=== PATIENT | female | born 1995 | race Caucasian/White ===

== ENCOUNTER → 2018-05-05 | Outpatient (CLI) | payer OTHER ==
--- NOTE | 2018-05-05 16:50 | Diagnostic Imaging Report ---
INDICATION: survey. TECHNIQUE: Multiple real-time grayscale images were obtained over the gravid uterus. COMPARISON: None. FINDINGS: There is a single live fetus in a cephalic presentation. heart rate was recorded at 147 beats per minute. Placenta is anterior and somewhat low lying. Amniotic fluid volume is normal. The cervical length is 5.6 cm. kidneys, bladder and stomach are unremarkable. brain is unremarkable. There is a four-chamber heart. There is a three-vessel cord with normal insertion. The visualized spine is unremarkable. Biometrical measurements are as follows: Biparietal 4.86 cm, age 20 weeks 5 days. Head circumference 18.53 cm, age 21 weeks 0 days. Abdominal circumference 16.21 cm, age 21 weeks 3 days. Femur length 3.45 cm, age 21 weeks 0 days. Sonographic estimate age: 21 weeks 1 days. Sonographic estimated date of delivery: 09-14-18. Estimated Weight: 396 gm (+/- 58 gm). LMP percentile: 94%. heart rate: 147 beats per minute. number: 1 of 1. IMPRESSION: Single live IUP 21 weeks 1 day gestational age. The estimated date of confinement sonographically is 09/14/2018. Dictated by: Dictated on workstation # [id number]
== END ==
LOC: RAD 15:55
PROVIDERS: ATTEND Obstetrics & Gynecology
DX: Z36.89 Encounter for other specified antenatal screening (principal); Z3A.21 21 weeks gestation of pregnancy
CPT/HCPCS: 76805

== ENCOUNTER 2018-09-02 19:45 | Inpatient (IN) | payer OTHER | END 2018-09-04 16:10 | disposition home or self-care (01) | LOC: LDRP 19:45 ==

== ENCOUNTER 2018-09-10 15:28 | Observation (INO) | payer OTHER ==
[~2018-09-10] VITALS: Ht 162.6 cm; Wt 73.9 kg
--- NOTE | 2018-09-10 15:25 | NUR ---
YANA GALINDO presented to unit via ambulation from OB clinic, accompanied by friend, with c/o ENDOMETRITIS. YANA GALINDO weighed, gowned, voided, and to bed. EFHM and TOCO applied, VS taken. YANA GALINDO oriented to bed controls, call light, TV, heat, and A/C controls.
[~2018-09-10 15:28] MED LIST: Benzocaine/Menthol TP; DOCU100C37 PO; FERR325T18 PO; HYDR-4226 PO; IBUP-844 PO
--- NOTE | 2018-09-10 15:37 | NUR ---
Dr. Mcguire notified pt has been admitted, awaiting orders
--- NOTE | 2018-09-10 15:59 | NUR ---
Dr. Mcguire called to unit, orders rec'd.
[2018-09-10] MEDS ORDERED: D5 LR IV SOLUTION 1,000 ML IV ONE (16:29)
[2018-09-10 16:30] VITALS: BP 105/71
[2018-09-10] MEDS: D5 LR IV SOLUTION 1,000 ML IV SCH (16:45)
[2018-09-10 16:54] LABS: BASOPHILS % (AUTO) 0 % (0-10); EOSINOPHILS # (AUTO) 0.1 10^3/uL (0.0-0.3); EOSINOPHILS % (AUTO) 1 % (0-10); HEMATOCRIT 30 % (35-52); HEMOGLOBIN 10.3 G/DL (11.5-16.0); LYMPHOCYTES # (AUTO) 1.5 X 10^3 (1.0-4.0); LYMPHOCYTES % (AUTO) 17 % (12-44); MEAN CORPUSCULAR HEMOGLOBIN 31 PG (25-34); MEAN CORPUSCULAR HGB CONC 35 G/DL (32-36); MEAN CORPUSCULAR VOLUME 91 FL (80-99); MEAN PLATELET VOLUME 9.3 FL (7.4-10.4); MONOCYTES # (AUTO) 0.6 X 10^3 (0.0-1.0); MONOCYTES % (AUTO) 7 % (0-12); NEUTROPHILS # (AUTO) 6.5 X 10^3 (1.8-7.8); NEUTROPHILS % (AUTO) 75 % (42-75); PLATELET COUNT 357 10^3/uL (130-400); WHITE BLOOD COUNT 8.7 10^3/uL (4.3-11.0)
--- OUTSIDE RECORDS SUMMARY | 2018-09-10 16:59 | XMS REPORT | Continuity of Care Document ---
Author Organization Unknown Address Unknown Allergies Active Description Code Type Severity Reaction Onset Reported/Identified Relationship to Patient Clinical Status Yes Sulfa (Sulfonamide Antibiotics) [id number] Drug Allergy Moderate rash 09/02/2018 Medications There is no data. Problems Date Dx Coded Attending Type Code Diagnosis Diagnosed By 05/06/2018 FENECH DO, RYAN S Ot Z36.89 ENCOUNTER FOR OTHER SPECIFIED 05/06/2018 FENECH DO, RYAN S Ot Z3A.21 21 WEEKS GESTATION OF 05/11/2018 FENECH DO, RYAN S Ot Z36.89 ENCOUNTER FOR OTHER SPECIFIED 05/11/2018 FENECH DO, RYAN S Ot Z3A.21 21 WEEKS GESTATION OF 05/20/2018 FENECH DO, RYAN S Ot Z36.89 ENCOUNTER FOR OTHER SPECIFIED 05/20/2018 FENECH DO, RYAN S Ot Z3A.21 21 WEEKS GESTATION OF 07/22/2018 FENECH DO, RYAN S Ot Z36.89 ENCOUNTER FOR OTHER SPECIFIED 07/22/2018 FENECH DO, RYAN S Ot Z3A.21 21 WEEKS GESTATION OF 09/02/2018 FENECH DO, RYAN S Ot Z36.89 ENCOUNTER FOR OTHER SPECIFIED 09/02/2018 FENECH DO, RYAN S Ot Z3A.21 21 WEEKS GESTATION OF Procedures There is no data. Results Test Result Range Complete urinalysis with reflex to culture - 09/02/18 20:30 Urine color determination YELLOW NRG Urine clarity determination CLEAR NRG Urine pH measurement by test strip 7 5-9 Specific gravity of urine by test strip 1.005 1.016-1.022 Urine protein assay by test strip, semi-quantitative NEGATIVE NEGATIVE Urine glucose detection by automated test strip NEGATIVE NEGATIVE Erythrocytes detection in urine sediment by light microscopy NEGATIVE NEGATIVE Urine ketones detection by automated test strip NEGATIVE NEGATIVE Urine nitrite detection by test strip NEGATIVE NEGATIVE Urine total bilirubin detection by test strip NEGATIVE NEGATIVE Urine urobilinogen measurement by automated test strip (mass/volume) NORMAL NORMAL Urine leukocyte esterase detection by dipstick 1+ NEGATIVE Automated urine sediment erythrocyte count by microscopy (number/high power field) NONE NRG Automated urine sediment leukocyte count by microscopy (number/high power field) [HPF] NRG Bacteria detection in urine sediment by light microscopy FEW NRG Crystals detection in urine sediment by light microscopy NONE NRG Casts detection in urine sediment by light microscopy NONE NRG Mucus detection in urine sediment by light microscopy NEGATIVE NRG Complete urinalysis with reflex to culture NO NRG Complete blood count (CBC) with automated white blood cell (WBC) differential - 09/02/18 21:00 Blood leukocytes automated count (number/volume) 7.2 10*3/uL 4.3-11.0 Blood erythrocytes automated count (number/volume) 3.82 10*6/uL 4.35-5.85 Venous blood hemoglobin measurement (mass/volume) 12.0 g/dL 11.5-16.0 Blood hematocrit (volume fraction) 34 % 35-52 Automated erythrocyte mean corpuscular volume 90 [foz_us] 80-99 Automated erythrocyte mean corpuscular hemoglobin (mass per erythrocyte) 31 pg 25-34 Automated erythrocyte mean corpuscular hemoglobin concentration measurement (mass/volume) 35 g/dL 32-36 Automated erythrocyte distribution width ratio 13.3 % 10.0- 14.5 Automated blood platelet count (count/volume) 211 10*3/uL 130-400 Automated blood platelet mean volume measurement 10.6 [foz_us] 7.4-10.4 Automated blood neutrophils/100 leukocytes 69 % 42-75 Automated blood lymphocytes/100 leukocytes 19 % 12-44 Blood monocytes/100 leukocytes 11 % 0-12 Automated blood eosinophils/100 leukocytes 1 % 0-10 Automated blood basophils/100 leukocytes 0 % 0-10 Blood neutrophils automated count (number/volume) 5.0 10*3 1.8-7.8 Blood lymphocytes automated count (number/volume) 1.4 10*3 1.0-4.0 Blood monocytes automated count (number/volume) 0.8 10*3 0.0- 1.0 Automated eosinophil count 0.1 10*3/uL 0.0-0.3 Automated blood basophil count (count/volume) 0.0 10*3/uL 0.0-0.1 Blood type T Indirect antibody screen panel - 09/02/18 21:00 ABO+Rh group OP NRG Transfusion band number [id number] NRG Blood group antibody screen NEGATIVE NRG Complete blood count (CBC) with automated white blood cell (WBC) differential - 09/04/18 05:50 Blood leukocytes automated count (number/volume) 7.4 10*3/uL 4.3-11.0 Blood erythrocytes automated count (number/volume) 2.80 10*6/uL 4.35-5.85 Venous blood hemoglobin measurement (mass/volume) 8.8 g/dL 11.5-16.0 Blood hematocrit (volume fraction) 25 % 35-52 Automated erythrocyte mean corpuscular volume 91 [foz_us] 80-99 Automated erythrocyte mean corpuscular hemoglobin (mass per erythrocyte) 31 pg 25-34 Automated erythrocyte mean corpuscular hemoglobin concentration measurement (mass/volume) 35 g/dL 32-36 Automated erythrocyte distribution width ratio 13.0 % 10.0- 14.5 Automated blood platelet count (count/volume) 180 10*3/uL 130-400 Automated blood platelet mean volume measurement 10.3 [foz_us] 7.4-10.4 Automated blood neutrophils/100 leukocytes 66 % 42-75 Automated blood lymphocytes/100 leukocytes 25 % 12-44 Blood monocytes/100 leukocytes 9 % 0-12 Automated blood eosinophils/100 leukocytes 1 % 0-10 Automated blood basophils/100 leukocytes 0 % 0-10 Blood neutrophils automated count (number/volume) 4.9 10*3 1.8-7.8 Blood lymphocytes automated count (number/volume) 1.8 10*3 1.0-4.0 Blood monocytes automated count (number/volume) 0.6 10*3 0.0- 1.0 Automated eosinophil count 0.1 10*3/uL 0.0-0.3 Automated blood basophil count (count/volume) 0.0 10*3/uL 0.0-0.1 Encounters ACCT No. Visit Date/Time Discharge Status Pt. Type Provider Facility Loc./Unit Complaint [id number] 09/02/2018 19:45:00 09/04/2018 16:10:00 DIS Inpatient RYAN WEBSTER DO [facility] LDRP INDUCTION [id number] 05/05/2018 15:55:00 05/05/2018 23:59:59 CLS Outpatient RYAN WEBSTER DO [facility] RAD
[2018-09-10] MEDS ORDERED: metroNIDAZOLE 500MG/100ML IVPB 100 ML ONE (17:06)
--- NOTE | 2018-09-10 17:21 | Diagnostic Imaging Report ---
INDICATION: with abdominal tenderness. TECHNIQUE: Multiple real-time grayscale sonographic images were obtained of the pelvis, transabdominally and transvaginally. CORRELATION STUDY: None. FINDINGS: UTERUS: Enlarged consistent with state, 12.4 x 10.3 x 6.1 cm. The uterus otherwise appears unremarkable. ENDOMETRIUM: 4 mm. Endometrial thickness within normal limits; however, there is somewhat heterogeneous echotexture present. A few echogenic foci are noted. Additionally, there does appear to be some increased vascularity raising concern for retained products of conception. RIGHT OVARY: Not visualized. LEFT OVARY: Not visualized. No significant free pelvic fluid. IMPRESSION: 1. The endometrial thickness is within normal limits in thickness; however, there is heterogeneous echotexture with a suggestion of increased vascularity which does raise concern for retained products of conception. Echogenic foci could be reflective of calcifications versus small gas. 2. Nonvisualization of either ovary. Report was given to Dr. Mcguire at 5:20 p.m., by gila (for YOVANY). Dictated by: Dictated on workstation # [id number]
[2018-09-10] MEDS: metroNIDAZOLE 500MG/100ML IVPB 100 ML IV SCH (17:24)
[2018-09-10] MEDS: IBUPROFEN 600 MG (MOTRIN) TAB PO SCH (17:28)
[2018-09-10] MEDS ORDERED: ACETAMINOPHEN 500 MG TAB (TYLENOL) PO PRN (17:45)
[2018-09-10] MEDS: AMPICILLIN/SULBACTAM INJECTION 1.5 GM in NS (IVPB) 100 ML IV SCH (18:30)
--- NOTE | 2018-09-10 18:31 | NUR ---
To room to answer call light. Pt reports pain 8/10, worse than it has been all day. Pt shaking and visibly uncomfortable. Offered Lortab, pt requests something IV instead. Dr. Mcguire called, order rec'd for 1mg Dilaudid q3 hrs
[2018-09-10] MEDS ORDERED: HYDROmorphone 2 MG/ML VIAL (DILAUDID) ONE (19:02)
[2018-09-10] MEDS: HYDROmorphone 2 MG/ML VIAL (DILAUDID) IVP PRN (19:10)
--- NOTE | 2018-09-10 19:25 | NUR ---
call light answered at this time, patient asking about . Patient voices that she is feeling, "alot" better after receiving IV pain medication. No needs or concerns voiced when asked. POC reviewed with patient. Will return for assessment.
[2018-09-10 20:40] VITALS: BP 105/66
[2018-09-10] MEDS: DOCUSATE SODIUM 100 MG (COLACE) CAP PO SCH (20:40)
--- NOTE | 2018-09-10 20:40 | NUR ---
Assessment and vitals signs completed at this time. Patient voices pain is a 0/10 at this time. Mother at bedside. Patient voices no needs at this time. POC once again reviewed. Call light within reach, encouraged patient to call for any assistance or needs, patient verbalizes understanding.
[2018-09-10] MEDS ORDERED: metroNIDAZOLE 500MG/100ML IVPB 100 ML IV SCH (21:00)
[2018-09-10] MEDS: HYDROcodone/APAP 5 MG/325 MG (LORTAB) TAB PO PRN (21:29)
[2018-09-10] MEDS ORDERED: AMPICILLIN/SULBACTAM INJECTION 1.5 GM in NS (IVPB) 100 ML IV SCH (22:00)
--- NOTE | 2018-09-10 22:20 | History & Physical-OB/GYN ---
History of Present Illness History of Present Illness Reason for visit/HPI This 23 yo is admitted directly from the office today for clinical suspicion for endometritis. The patient is 6 days pp from unremarkable NVD, reports passing a large blood clot yesterday and having severe pain and suprapubic tenderness. Today she has developed a fever and present to my office for stat eval. She is diphoretic in the office and reports she had taken tylenol. She also reports having taken motrin as well recently and the pain is still severe. She denies intercourse since delivery Date of Admission September 10, 2018 at 15:28 Date Seen by a Provider: September 10, 2018 Time Seen by a Provider: 15:00 I consulted on this patient on 09/10/18 22:15 Attending Physician Ryan Webster DO Admitting Physician Ryan Webster DO Consult Allergies and Home Medications Allergies Coded Allergies: Sulfa (Sulfonamide Antibiotics) (Verified Allergy, Intermediate, rash, 09/02/18) Home Medications Docusate Sodium 100 Mg Capsule, 100 MG PO BID Prescribed by: RYAN WEBSTER on 09/04/18 0708 Ferrous Sulfate 325 Mg Tablet, 325 MG PO DAILY@0800 Prescribed by: RYAN WEBSTER on 09/04/18 0708 Hydrocodone/Acetaminophen 1 Each Tablet, 1 TAB PO Q4-6HR Prescribed by: RYAN WEBSTER on 09/04/18 0708 Ibuprofen 600 Mg Tablet, 600 MG PO Q6H Prescribed by: RYAN WEBSTER on 09/04/18 0708 [Benzocaine/Menthol] 56 ML AEROSOL, 0 ML TP UD PRN for PAIN- SEE INSTRUCTIONS EXTERNAL USE ONLY Prescribed by: RYAN WEBSTER on 09/04/18 0708 Patient Home Medication List Home Medication List Reviewed: Yes Past Thyfnvp-Wpebia-Pqvbkf Hx Patient Social History Marrital Status: Alcohol Use: Denies Use Smoking Status: Never a Smoker Recent Hopitalizations: No Immunizations Up To Date Pediatric: No Seasonal Allergies Seasonal Allergies: No Surgeries Yes Respiratory Yes Cardiovascular No Neurological No Reproductive System : No Genitourinary No Gastrointestinal No Musculoskeletal No Endocrine History of Endocrine Disorders: No HEENT History of HEENT Disorders: No Cancer No Psychosocial History of Psychiatric Problem: No Integumentary History of Skin or Integumenta: No Blood Transfusions History of Blood Disorders: No Adverse Reaction to a Blood Tr: No Review of Systems Constitutional: see HPI EENTM: see HPI Gastrointestinal: see HPI Genitourinary: see HPI : No Musculoskeletal: no symptoms reported Skin: no symptoms reported All Other Systems Reviewed Negative Unless Noted: Yes Physical Exam Physical Exam Vital Signs Vital Signs Date Time Temp Pulse Resp B/P (MAP) Pulse Ox O2 Delivery O2 Flow Rate FiO2 09/10/18 20:40 99.1 105 18 105/66 (79) 94 Room Air 09/10/18 16:30 99.3 83 18 105/71 (82) 98 Capillary Refill : Labs Laboratory Tests 09/10/18 16:42: White Blood Count 8.7, Red Blood Count 3.28L, Hemoglobin 10.3L, Hematocrit 30L, Mean Corpuscular Volume 91, Mean Corpuscular Hemoglobin 31, Mean Corpuscular Hemoglobin Concent 35, Red Cell Distribution Width 13.0, Platelet Count 357, Mean Platelet Volume 9.3, Neutrophils (%) (Auto) 75, Lymphocytes (%) (Auto) 17, Monocytes (%) (Auto) 7, Eosinophils (%) (Auto) 1, Basophils (%) (Auto) 0, Neutrophils # (Auto) 6.5, Lymphocytes # (Auto) 1.5, Monocytes # (Auto) 0.6, Eosinophils # (Auto) 0.1, Basophils # (Auto) 0.0 General Appearance: Anxious, Moderate Distress Respiratory: Chest Non Tender, No Accessory Muscle Use Cardiovascular: Regular Rate, Rhythm Abdominal: soft, guarding (suprapubic), tenderness (suprapubic, no upper abdominal tenderness) Pelvic Exam: deferred Extremity: Normal Inspection, Non Tender Assessment/Plan Admission Diagnosis endometritis 6 days from NVD Suprapubic pain Febrile Admission Status: Observation Clinical Quality Measures DVT/VTE Risk/Contraindication: Risk Factor Score Per Nursin RFS Level Per Nursing on Admit: 1=Low/No VTE PPX RYAN WEBSTER DO September 10, 2018 22:20
[2018-09-11] VITALS: BP 103/68
[2018-09-11] MEDS: HYDROmorphone 2 MG/ML VIAL (DILAUDID) IVP PRN ×2 (00:30→06:35)
[2018-09-11] MEDS: AMPICILLIN/SULBACTAM INJECTION 1.5 GM in NS (IVPB) 100 ML IV SCH ×2 (01:50→10:28)
[2018-09-11 03:45] VITALS: BP 96/65
[2018-09-11] MEDS: D5 LR IV SOLUTION 1,000 ML IV SCH (03:45)
[2018-09-11] MEDS: HYDROcodone/APAP 5 MG/325 MG (LORTAB) TAB PO PRN (04:27)
--- NOTE | 2018-09-11 05:34 | NUR ---
Dr Mcguire called up to nurses desk for update on patient status overnight. Notified of prn pain medication administrations, stable vs. No new orders at this time.
[2018-09-11] MEDS: metroNIDAZOLE 500MG/100ML IVPB 100 ML IV SCH (05:47)
[2018-09-11] MEDS: IBUPROFEN 600 MG (MOTRIN) TAB PO SCH ×3 (05:47→11:57)
[2018-09-11] MEDS ORDERED: PRENATAL VITAMIN 1 EA TAB PO SCH (07:00)
[2018-09-11] MEDS ORDERED: FERROUS SULF 325 MG (IRON) TAB PO SCH (07:00)
[2018-09-11 08:00] VITALS: BP 108/63
[2018-09-11] MEDS: DOCUSATE SODIUM 100 MG (COLACE) CAP PO SCH (08:15)
--- NOTE | 2018-09-11 08:15 | NUR ---
THIS RN AT BEDSIDE. RN INTRODUCES SELF TO PT AND FAMILY. PHYSICAL ASSESSMENT COMPLETED, VSS, MEDS ADMIN. CLAL LIGHT WITHIN REACH. PT DENIES NEEDS.
[2018-09-11] MEDS ORDERED: METR500T PO (09:42)
[2018-09-11] MEDS ORDERED: AMOX-358 PO (09:42)
--- NOTE | 2018-09-11 10:00 | NUR ---
PT REPORT GIVEN TO MITCHELL GOMEZ AT THIS TIME.
[2018-09-11 13:03] VITALS: BP 101/68
--- NOTE | 2018-09-11 13:37 | NUR ---
Gave verbal and handouts of discharge and home care instructions to pt. Pt verbalizes understanding and verifies by signing signature page.
--- NOTE | 2018-09-11 13:45 | NUR ---
Pt discharged. Pt ambulated to private vehicle accompanied via and this nurse. All personal items with pt. No concerns voiced via pt. No s/s of distress.
== END 2018-09-11 13:45 | disposition home or self-care (01) ==
LOC: WS 15:28
PROVIDERS: ADMIT Obstetrics & Gynecology; ATTEND Obstetrics & Gynecology
DX: O86.12 Endometritis following delivery (principal)
CPT/HCPCS: 36415; 76856; 85025; 87040; 96361; 96374; 96375; 96376; 99211; G0378

== ENCOUNTER → 2019-11-10 | Outpatient (CLI) | payer BC, OTHER ==
[~2019-11-10] MED LIST changes: +AMOX-358 PO; +METR500T PO
--- NOTE | 2019-11-10 11:56 | Diagnostic Imaging Report ---
INDICATION: survey. TECHNIQUE: Multiple real-time grayscale images were obtained over the gravid uterus. COMPARISON: There are no prior studies available for comparison. FINDINGS: There is a single live fetus in cephalic presentation. heart motion is noted at a rate of 143 BPM. There are no abnormalities noted. The placenta is posterior. There does seem to be a prominent bey within the midportion of placenta. There is no evidence for an abruption or for previa. The amniotic fluid volume is within normal limits. The growth parameters are fairly uniform. Biometrical measurements are as follows: Biparietal 5.25 cm, age 22 weeks 0 days. Head circumference 19.83 cm, age 22 weeks 1 days. Abdominal circumference 16.23 cm, age 21 weeks 3 days. Femur length 3.95 cm, age 22 weeks 66 days. Sonographic estimate age: 22 weeks 1 days. Sonographic estimated date of delivery: 03/14/2020. Estimated Weight: 464 gm (+/- 68 gm). LMP percentile: 28%. heart rate: 143 beats per minute. number: 1 of 1. IMPRESSION: 1. There is a single live fetus of approximately 22 weeks 1 day gestation +/- 2 weeks. The EDC is March 14, 2020. 2. There are no abnormalities identified. 3. The growth parameters are fairly uniform. Dictated by: Dictated on workstation # [id number]
== END ==
LOC: RAD 09:38
PROVIDERS: ATTEND Obstetrics & Gynecology
DX: Z34.92 Encounter for supervision of normal pregnancy, unspecified, second trimester (principal); Z3A.22 22 weeks gestation of pregnancy
CPT/HCPCS: 76805

== ENCOUNTER 2020-02-29 19:00 | Inpatient (IN) | payer BC, OTHER ==
[~2020-02-29] VITALS: Ht 162.6 cm; Wt 85.0 kg
[2020-02-29] VITALS (14 sets, daily range): BP systolic 96–120; BP diastolic 55–80
--- NOTE | 2020-02-29 20:35 | NUR ---
YANA GALINDO presented to unit via AMBULATORY from ED, accompanied by ADULT MALE , with c/o INDUCTION. YANA GALINDO weighed, gowned, voided, and to bed. EFHM and TOCO applied, VS taken. YANA GALINDO oriented to bed controls, call light, TV, heat, and A/C controls. ABOVE AND FURTHER ASSESSMENTS/CARE PER THIS RN
[2020-02-29] MEDS: D5 LR IV SOLUTION 1,000 ML IV SCH (20:50)
[2020-02-29 21:42] LABS: BASOPHILS % (AUTO) 0 % (0-10); EOSINOPHILS # (AUTO) 0.1 10^3/uL (0.0-0.3); EOSINOPHILS % (AUTO) 1 % (0-10); HEMATOCRIT 34 % (35-52); HEMOGLOBIN 11.8 g/dL (11.5-16.0); LYMPHOCYTES # (AUTO) 1.8 10^3/uL (1.0-4.0); LYMPHOCYTES % (AUTO) 25 % (12-44); MEAN CORPUSCULAR HEMOGLOBIN 32 pg (25-34); MEAN CORPUSCULAR HGB CONC 35 g/dL (32-36); MEAN CORPUSCULAR VOLUME 92 fL (80-99); MEAN PLATELET VOLUME 11.2 fL (9.0-12.2); MONOCYTES # (AUTO) 0.5 10^3/uL (0.0-1.0); MONOCYTES % (AUTO) 7 % (0-12); NEUTROPHILS # (AUTO) 5.1 10^3/uL (1.8-7.8); NEUTROPHILS % (AUTO) 67 % (42-75); PLATELET COUNT 177 10^3/uL (130-400); WHITE BLOOD COUNT 7.5 10^3/uL (4.3-11.0)
[2020-02-29] MEDS ORDERED: fentaNYL 2 mcg/ml BUPIVA 0.125 100 ML ONE (21:52)
[2020-02-29 22:08] LABS: BILIRUBIN,URINE NEGATIVE (NEGATIVE); CLARITY,URINE SL CLOUDY; COLOR,URINE YELLOW; GLUCOSE, URINE (UA) NEGATIVE (NEGATIVE); KETONES,URINE TRACE (NEGATIVE); LEUKOCYTE ESTERASE ,URINE NEGATIVE (NEGATIVE); NITRITE,URINE NEGATIVE (NEGATIVE); PROTEIN,URINE NEGATIVE (NEGATIVE)
[2020-02-29] MEDS ORDERED: OXYTOCIN PRE-MIX DRIP 500 ML IV ONE ×2 (22:21)
[2020-02-29] MEDS ORDERED: LIDOCAINE/EPI 2% 1:200,00 (XYLOCAINE) 10 ML VIAL ONE (22:21)
[2020-02-29] MEDS ORDERED: BUPIVACAINE 0.25% 30 ML (SENSORCAINE) VIAL ONE (22:33)
[2020-02-29] MEDS ORDERED: LACTATED RINGERS 1,000 ML IV ONE ×2 (22:33)
[2020-02-29] MEDS ORDERED: fentaNYL INJECTION 100 MCG/2 ML AMP ONE (22:33)
[2020-02-29] MEDS ORDERED: NALOXONE 0.4 MG/ML 1 ML (NARCAN) VIAL IV PRN (22:45)
[2020-02-29] MEDS: EPIDURAL (fentaNYL 2 MCG/ML BUPIVA 0.125%)100 ML BAG EPI PRN (22:54)
[2020-03-01] VITALS (60 sets, daily range): BP systolic 66–124; BP diastolic 33–80
[2020-03-01 00:02] LABS: AMORPHOUS SEDIMENT,UR FEW AMOR PHOSPHATE /LPF; BACTERIA,URINE TRACE /HPF; RBC,URINE 0-2 /HPF; WBC,URINE 0-2 /HPF
[2020-03-01] MEDS ORDERED: PNV1TABL9 PO (03:15)
[2020-03-01] MEDS: D5 LR IV SOLUTION 1,000 ML IV SCH (05:01)
[2020-03-01] MEDS: ONDANSETRON 4 MG/2 ML (SDV) Z0FRAN IV PRN ×2 (05:01→10:37)
[2020-03-01] MEDS: EPIDURAL (fentaNYL 2 MCG/ML BUPIVA 0.125%)100 ML BAG EPI PRN (05:40)
--- NOTE | 2020-03-01 07:00 | NUR ---
0640 - 0700 monitors on - fhr monitor applied rn attemting to find fhr heard in the 140s rn attempting to continue to track heart rate for strip recording. Addendum: 03/01/20 at 0724 by WINIFRED MATA RN WRONG PT
--- NOTE | 2020-03-01 07:00 | NUR ---
Report received from Griffin MEDRANO.
--- NOTE | 2020-03-01 07:30 | NUR ---
Initial assessment completed, vss, see interventions for detailed assessments, see labor flowsheet for labor documentation. Plan of care reviewed with pt/so, no questions noted, will monitor closely. No distress noted.
--- NOTE | 2020-03-01 08:08 | History & Physical-OB ---
OB - Chief Complaint & HPI Date/Time Date of Admission: Date of Admission: Feb 29, 2020 at 21:23 Date seen by a Provider: Mar 01, 2020 Time Seen by a Provider: 07:50 Chief Complaint/History OB-Reason for Admission/Chief: Induction of Labor Hx : 2 Hx Para: 1 Expected Date of Delivery: Mar 13, 2020 Gestational Age in Weeks: 38 Gestational Age in Days: 1 Admission Nurse Assessment Rev: Yes Allergies and Home Medications Allergies Coded Allergies: Sulfa (Sulfonamide Antibiotics) (Verified Allergy, Intermediate, rash, 09/02/18) Home Medications Pnv Cmb#21/Iron/Folic Acid 1 Each Tablet, 1 EACH PO DAILY, (Reported) Patient Home Medication List Home Medication List Reviewed: Yes OB - History Hx of Present Care: Yes Ultrasounds: Normal mid trimester US Obstetrical Complications: Gestational Hypertension Medical Complications: None Delivery History Adverse Rxn to Tranfusion: No Patient Past Medical History n/a Social History/Family History Alcohol Use: Denies Use Recreational Drug Use: No Immunizations Hepatitis A: Yes Hepatitis B: Yes Date of Influenza Vaccine: Dec 30, 2019 OB - Admission Exam Physical Exam Vitals: Vital Signs 03/01/20 03/01/20 02:15 07:00 Temp 36.2 Pulse 93 Resp 18 B/P (MAP) 106/52 (70) Pulse Ox 97 O2 Delivery Room Air HEENT: NCAT Heart: Rhythm Normal Lungs: Clear Abdomen: Gravid Extremities: Normal Reflexes: Normal Cervical Dilatation: 4cm Effacement: 75% Station: -1 Membranes: Intact Heart Rate: 130's Accelerations: Accelerations Present Decelerations: No Decelerations Short Term Variability: Present Chcf Variability: Average (6-25) Contractions on Admission: 6-10 Minutes Apart Intensity: Moderate Labs Laboratory Tests Test 02/29/20 20:15 02/29/20 21:10 02/29/20 21:55 Range/Units White Blood Count 7.5 4.3-11.0 10^3/uL Red Blood Count 3.65 L 3.80-5.11 10^6/uL Hemoglobin 11.8 11.5-16.0 g/dL Hematocrit 34 L 35-52 % Mean Corpuscular Volume 92 80-99 fL Mean Corpuscular Hemoglobin 32 25-34 pg Mean Corpuscular Hemoglobin Concent 35 32-36 g/dL Red Cell Distribution Width 12.9 10.0-14.5 % Platelet Count 177 130-400 10^3/uL Mean Platelet Volume 11.2 9.0-12.2 fL Immature Granulocyte % (Auto) 0 % Neutrophils (%) (Auto) 67 42-75 % Lymphocytes (%) (Auto) 25 12-44 % Monocytes (%) (Auto) 7 0-12 % Eosinophils (%) (Auto) 1 0-10 % Basophils (%) (Auto) 0 0-10 % Neutrophils # (Auto) 5.1 1.8-7.8 10^3/uL Lymphocytes # (Auto) 1.8 1.0-4.0 10^3/uL Monocytes # (Auto) 0.5 0.0-1.0 10^3/uL Eosinophils # (Auto) 0.1 0.0-0.3 10^3/uL Basophils # (Auto) 0.0 0.0-0.1 10^3/uL Immature Granulocyte # (Auto) 0.0 0.0-0.1 10^3/uL Urine Color YELLOW Urine Clarity SL CLOUDY Urine pH 7.0 5-9 Urine Specific [place] 1.020 1.016-1.022 Urine Protein NEGATIVE NEGATIVE Urine Glucose (UA) NEGATIVE NEGATIVE Urine Ketones TRACE H NEGATIVE Urine Nitrite NEGATIVE NEGATIVE Urine Bilirubin NEGATIVE NEGATIVE Urine Urobilinogen 0.2 < = 1.0 MG/DL Urine Leukocyte Esterase NEGATIVE NEGATIVE Urine RBC (Auto) NEGATIVE NEGATIVE Urine RBC 0-2 /HPF Urine WBC 0-2 /HPF Urine Crystals PRESENT H /LPF Urine Amorphous Sediment FEW BEATRIZ PHOSPHATE H /LPF Urine Bacteria TRACE /HPF Urine Casts NONE /LPF Urine Mucus SMALL H /LPF Urine Culture Indicated NO OB - Assessment/Plan/Diagnosis Assessment Assessment: active labor, induction of labor Admission Dx 24 yo @ 39 weeks Induction of labor planned, however patient in active labor at admission GHTN- improved today GBS neg Admission Status: Inpatient Order (span 2 midnights) Reason for Inpatient Admission: Active labor at term Plan Plan: Expectant Management RYAN WEBSTER DO Mar 01, 2020 08:08
[2020-03-01] MEDS: CATHETER FLUSH 10 ML SYR IV SCH ×2 (08:53→08:54)
[2020-03-01] MEDS ORDERED: OXYTOCIN PRE-MIX DRIP 500 ML IV SCH (10:58)
[2020-03-01] MEDS ORDERED: WITCH HAZEL(TUCKS) 40 EA JAR TOP PRN (11:00)
[2020-03-01] MEDS ORDERED: TETANUS,DIPTH,PERTUSS P/F (BOOSTRIX) 0.5 ML VIAL IM ONE (11:00)
[2020-03-01] MEDS ORDERED: BENZOCAINE/MENTHOL (DERMOPLAST) 60 ML CAN TP PRN (11:00)
[2020-03-01] MEDS ORDERED: DIBUCAINE (NUPERCAINAL) 1% OINT 30 GM TOP PRN (11:00)
[2020-03-01] MEDS ORDERED: MEASLES,MUMPS,RUBELLA 1 EA INJ SQ ONE (11:00)
[2020-03-01] MEDS ORDERED: OXYTOCIN PRE-MIX DRIP 500 ML IV ONE (11:15)
--- NOTE | 2020-03-01 11:27 | OB Labor & Delivery Record ---
L&D History Date of Service Date of Service: Mar 01, 2020 History Expected Date of Delivery: Mar 13, 2020 Gestational Age in Weeks: 38 Hx : 2 Hx Para: 1 Complications Events: Routine care Operative Indications (Cesarea: N/A-Vaginal Delivery Intrapartal Events: None L&D Stage1 Stage One Onset of Labor - Date: Mar 01, 2020 Monitors and Tracing Monitor Mode: External Heart Rate: 130 Monitor Accelerations: Uniform Monitor Decelerations: Variable Station: +1 Halfway Variability: Average (6-10) Short Term Variability: Present Presentation: Vertex Vital Signs VS - Last 72 Hours, by Label 02/29/20 02/29/20 02/29/20 02/29/20 21:00 22:00 22:54 22:57 Temp 36.7 Pulse 82 91 102 89 Resp 18 18 18 18 B/P (MAP) 113/71 (85) 114/72 (86) 118/72 (87) Pulse Ox 97 97 97 97 O2 Delivery Room Air Room Air Room Air Room Air 02/29/20 02/29/20 02/29/20 02/29/20 23:00 23:03 23:06 23:09 Pulse 105 95 97 96 Resp 18 18 18 18 B/P (MAP) 105/62 (76) 120/80 (93) 117/64 (81) 111/66 (81) Pulse Ox 98 98 97 98 O2 Delivery Room Air Room Air Room Air Room Air 02/29/20 02/29/20 02/29/20 02/29/20 23:12 23:15 23:20 23:25 Pulse 97 96 97 79 Resp 18 18 18 18 B/P (MAP) 114/65 (81) 100/63 (75) 96/61 (73) 107/55 (72) Pulse Ox 86 97 97 97 O2 Delivery Room Air Room Air Room Air Room Air 02/29/20 02/29/20 02/29/20 03/01/20 23:30 23:45 23:57 00:00 Temp 36.7 Pulse 92 83 92 88 Resp 18 18 18 18 B/P (MAP) 120/58 (78) 111/62 (78) 108/66 (80) Pulse Ox 98 97 98 96 O2 Delivery Room Air Room Air Room Air Room Air 03/01/20 03/01/20 03/01/20/18/20 00:15 00:30 00:45 01:00 Pulse 87 87 86 85 Resp 18 18 18 18 B/P (MAP) 108/60 (76) 100/56 (71) 105/63 (77) 104/64 (77) Pulse Ox 97 96 96 96 O2 Delivery Room Air Room Air Room Air Room Air 03/01/20 03/01/20 03/01/20 03/01/20 01:15 01:30 01:45 02:00 Pulse 87 95 89 91 Resp 18 18 18 18 B/P (MAP) 108/62 (77) 101/63 (76) 105/57 (73) Pulse Ox 96 98 97 96 O2 Delivery Room Air Room Air Room Air Room Air 03/01/20 03/01/20 03/01/20 03/01/20 02:15 02:30 02:45 03:00 Temp 36.2 Pulse 125 107 107 92 Resp 18 18 18 18 B/P (MAP) 105/64 (78) 96/53 (67) 96/53 (67) 104/61 (75) Pulse Ox 97 96 96 96 O2 Delivery Room Air Room Air Room Air Room Air 03/01/20 03/01/20 03/01/20 03/01/20 03:15 03:30 03:45 04:00 Pulse 93 79 92 82 Resp 18 18 18 18 B/P (MAP) 103/63 (76) 99/55 (70) 92/59 (70) 107/62 (77) Pulse Ox 97 96 95 98 O2 Delivery Room Air Room Air Room Air Room Air 03/01/20 03/01/20 03/01/20 03/01/20 04:15 04:30 04:45 05:00 Pulse 86 86 87 88 Resp 18 18 18 18 B/P (MAP) 96/55 (69) 98/62 (74) 101/58 (72) 122/60 (80) Pulse Ox 96 97 97 96 O2 Delivery Room Air Room Air Room Air Room Air 03/01/20 03/01/20 03/01/20 03/01/20 05:15 05:30 05:45 06:00 Pulse 82 89 81 79 Resp 18 18 18 18 B/P (MAP) 111/54 (73) 105/61 (76) 101/59 (73) 105/59 (74) Pulse Ox 96 95 97 96 O2 Delivery Room Air Room Air Room Air Room Air 03/01/20 03/01/20 03/01/20 03/01/20 06:15 06:30 06:45 07:00 Pulse 79 100 81 93 Resp 18 18 B/P (MAP) 105/59 (74) 101/56 (71) 99/57 (71) 106/52 (70) Pulse Ox 96 98 95 97 O2 Delivery Room Air Room Air Room Air Room Air 03/01/20 03/01/20 03/01/20 03/01/20 07:10 07:30 07:45 08:00 Temp 36.2 Pulse 87 87 99 79 Resp 20 20 20 20 B/P (MAP) 102/63 (76) 93/53 (66) 104/62 (76) 99/66 (77) Pulse Ox 97 97 98 96 O2 Delivery Room Air Room Air Room Air Room Air 03/01/20 03/01/20 03/01/20 03/01/20 08:15 08:30 08:45 09:00 Temp 36.6 Pulse 77 82 80 77 Resp 20 20 20 20 B/P (MAP) 90/54 (66) 117/70 (86) 108/68 (81) 107/70 (82) Pulse Ox 98 100 100 99 O2 Delivery Non Rebreather Non Rebreather Non Rebreather Non Rebreather O2 Flow Rate 10.00 10.00 10.00 10.00 03/01/20 03/01/20 03/01/20 03/01/20 09:15 09:30 09:45 10:00 Pulse 83 79 81 74 Resp 20 20 20 20 B/P (MAP) 115/79 (91) 108/62 (77) 109/68 (82) 123/80 (94) Pulse Ox 100 100 99 99 O2 Delivery Non Rebreather Non Rebreather Non Rebreather Non Rebreather O2 Flow Rate 10.00 10.00 10.00 10.00 Rupture of Membranes Spontaneous Ruture of Membrane: No Amniotic Membrane Rupture Time: 0736 Amniotic Membrane Fluid Desc.: Clear Vaginal Bleeding Description: Normal Show Induction/Anesthesia Epidural Cath Placement - Time: 2244 Progress/Notes Patient brought in for induction due to GHTN and noted to be in active labor, she progressed to complete and +2 station with AROM augmentation only L&D Stage2 Stage Two Stage II Date: Mar 01, 2020 Monitors and Tracing Monitor Mode: External Heart Rate: 130 Monitor Accelerations: Uniform Monitor Decelerations: Variable Halfway Variability: Average (6-10) Short Term Variability: Present Position: Right Occiput Anterior Presentation: Vertex Cord Descript/Complications Cord Vessel Description: 3 Vessels Delivery Type Delivery Method: Spontaneous Vaginal Anterior Shoulder: Left Episiotomy/Perineal Laceration Laceraction(s)/Extensions: Yes Episiotomy Description: Perineal Extension/lac, 2nd degree Degree (describe repair) Bilateral periurethral and 2nd degree perineal laceration repaired using 3-0 and 2-0 vicryl suture Condition of Infant Delivery 1 minute Comment: 8 5 minute Comment: 9 Notes live female infant wieght 8lbs 2 oz Condition of Infant Condition of : Living Exam: No Observed Abnormalities Resuscitation Resuscitation: N/A - Spontaneous Resp L&D Stage3 Stage Three Stage III Date: Mar 01, 2020 Pictocin Pitocin Administration Comment: 30 mu wide open Placenta Delivery Placenta Delivery: Spontaneous Delivery Summary Summary Estimated blood loss (mL): 350 Attending at delivery: Ryan Webster DO Condition of Delivery Examined: Cervix Examined, Uterus Explored Post Hemorrhage: No Condition of Mother stable Condition of (s) stable RYAN WEBSTER DO Mar 01, 2020 11:27 am
--- NOTE | 2020-03-01 11:43 | NUR ---
PITOCIN COMPLETE. VSS, NO DISTRESS NOTED, PT DENIES C/O OR PAIN.
[2020-03-01] MEDS: IBUPROFEN 600 MG (MOTRIN) TAB PO SCH ×2 (13:33→19:48)
--- NOTE | 2020-03-01 13:34 | NUR ---
PT UP TO BR AMBULATED WITH RN ASSISTANCE, VOIDED, PERICARE COMPLETED, BACK TO BED, VSS, NO DISTRESS NOTED, SCHEDULED MOTRIN GIVEN PO. FFU/2 LT LOCHIA NOTED.
[2020-03-01] MEDS ORDERED: CATHETER FLUSH 10 ML SYR IV SCH (14:00)
[2020-03-01] MEDS: HYDROcodone/APAP 5 MG/325 MG (LORTAB) TAB PO PRN ×2 (18:24→23:13)
[2020-03-01] MEDS: DOCUSATE SODIUM 100 MG (COLACE) CAP PO SCH (19:48)
--- NOTE | 2020-03-01 22:30 | NUR ---
pt laying in bed with s.o. at bedside, denies needs.
[2020-03-01] MEDS ORDERED: fentaNYL INJECTION 100 MCG/2 ML AMP INJ ONE (22:45)
--- NOTE | 2020-03-02 01:50 | NUR ---
Pt at this time, denies needs.
[2020-03-02] MEDS: IBUPROFEN 600 MG (MOTRIN) TAB PO SCH ×2 (01:51→07:40)
[2020-03-02 03:30] VITALS: BP 104/59
[2020-03-02 05:43] LABS: BASOPHILS % (AUTO) 0 % (0-10); EOSINOPHILS # (AUTO) 0.1 10^3/uL (0.0-0.3); EOSINOPHILS % (AUTO) 2 % (0-10); HEMATOCRIT 24 % (35-52); HEMOGLOBIN 8.1 g/dL (11.5-16.0); LYMPHOCYTES # (AUTO) 1.8 10^3/uL (1.0-4.0); LYMPHOCYTES % (AUTO) 29 % (12-44); MEAN CORPUSCULAR HEMOGLOBIN 32 pg (25-34); MEAN CORPUSCULAR HGB CONC 34 g/dL (32-36); MEAN CORPUSCULAR VOLUME 95 fL (80-99); MEAN PLATELET VOLUME 11.1 fL (9.0-12.2); MONOCYTES # (AUTO) 0.4 10^3/uL (0.0-1.0); MONOCYTES % (AUTO) 7 % (0-12); NEUTROPHILS % (AUTO) 62 % (42-75)
[2020-03-02 06:41] LABS: NEUTROPHILS # (AUTO) 3.9 10^3/uL (1.8-7.8); PLATELET COUNT 137 10^3/uL (130-400); WHITE BLOOD COUNT 6.3 10^3/uL (4.3-11.0)
--- NOTE | 2020-03-02 06:52 | Postpartum Progress Note ---
Note Note Day # 1 Subjective: Patient is without complaints. Ambulating, voiding. Tolerating a regular diet without nausea or vomiting. Normal lochia. Pain is well controlled with oral pain medications. Objective: Physical Exam: General - Alert and oriented, no apparent distress Abdomen - Soft, appropriately tender to palpation, non-distended, fundus firm at umbilicus Extremities - no edema, negative Diana's bilaterally Assessment: PPD 1 NVD Acute blood loss anemia Plan: Routine care. Encourage breast feeding. Encourage ambulation. Ferrous sulfate supplementation. Plan for discharge today Vitals - Labs Vital Signs - I&O Vital Signs Date Time Temp Pulse Resp B/P (MAP) Pulse Ox O2 Delivery O2 Flow Rate FiO2 03/02/20 03:30 36.4 78 18 104/59 (74) Room Air 03/01/20 23:30 36.3 80 18 102/52 (69) Room Air 03/01/20 19:50 36.8 80 18 114/68 (83) 97 Room Air 03/01/20 16:13 36.5 88 20 107/59 (75) 99 Room Air 03/01/20 12:37 88 20 107/65 (79) Room Air 03/01/20 12:22 111 20 112/70 (84) Room Air 03/01/20 12:07 103 20 108/59 (75) Room Air 03/01/20 11:52 88 20 93/60 (71) Room Air 03/01/20 11:37 106 20 109/74 (86) Room Air 03/01/20 11:22 100 20 104/67 (79) Room Air 03/01/20 11:15 109 20 109/72 (84) Room Air 03/01/20 11:10 109 20 112/64 (80) Room Air 03/01/20 11:05 113 20 105/72 (83) Room Air 03/01/20 11:00 90 20 88/51 (63) Room Air 03/01/20 10:57 93 20 97/55 (69) Room Air 03/01/20 10:55 100 20 92/53 (66) Room Air 03/01/20 10:45 86 20 88/51 (63) Room Air 03/01/20 10:40 85 20 78/46 (57) Room Air 03/01/20 10:38 36.2 100 20 66/33 (44) Room Air 03/01/20 10:30 82 20 124/70 (88) Room Air 03/01/20 10:15 87 20 115/73 (87) Room Air 03/01/20 10:00 74 20 123/80 (94) 99 Non Rebreather 10.00 03/01/20 09:45 81 20 109/68 (82) 99 Non Rebreather 10.00 03/01/20 09:30 79 20 108/62 (77) 100 Non Rebreather 10.00 03/01/20 09:15 83 20 115/79 (91) 100 Non Rebreather 10.00 03/01/20 09:00 77 20 107/70 (82) 99 Non Rebreather 10.00 03/01/20 08:45 80 20 108/68 (81) 100 Non Rebreather 10.00 03/01/20 08:30 82 20 117/70 (86) 100 Non Rebreather 10.00 03/01/20 08:15 36.6 77 20 90/54 (66) 98 Non Rebreather 10.00 03/01/20 08:00 79 20 99/66 (77) 96 Room Air 03/01/20 07:45 36.2 99 20 104/62 (76) 98 Room Air 03/01/20 07:30 87 20 93/53 (66) 97 Room Air 03/01/20 07:10 87 20 102/63 (76) 97 Room Air 03/01/20 07:00 93 18 106/52 (70) 97 Room Air I & O 03/02/20 07:00 Intake Total 1550 ml Balance 1550 ml Labs Laboratory Tests 03/02/20 05:05: White Blood Count 6.3, Red Blood Count 2.52L, Hemoglobin 8.1#L, Hematocrit 24L, Mean Corpuscular Volume 95, Mean Corpuscular Hemoglobin 32, Mean Corpuscular Hemoglobin Concent 34, Red Cell Distribution Width 13.2, Platelet Count 137, Mean Platelet Volume 11.1, Immature Granulocyte % (Auto) 1, Neutrophils (%) (Auto) 62, Lymphocytes (%) (Auto) 29, Monocytes (%) (Auto) 7, Eosinophils (%) (Auto) 2, Basophils (%) (Auto) 0, Neutrophils # (Auto) 3.9, Lymphocytes # (Auto) 1.8, Monocytes # (Auto) 0.4, Eosinophils # (Auto) 0.1, Basophils # (Auto) 0.0, Immature Granulocyte # (Auto) 0.0 RYAN WEBSTER DO Mar 02, 2020 06:52
--- NOTE | 2020-03-02 06:55 | Anesthesia-General Post-Op ---
General Patient Condition Mental Status/LOC: Same as Preop Cardiovascular: Satisfactory Nausea/Vomiting: Absent Respiratory: Satisfactory Pain: Controlled Complications: Absent Post Op Complications Complications None Follow Up Care/Instructions Patient Instructions None needed. Anesthesia/Patient Condition Patient Condition Patient is doing well, no complaints, stable vital signs, no apparent adverse anesthesia problems. No complications reported per nursing. VALERIE CAMPBELL CRNA Mar 02, 2020 06:55
--- NOTE | 2020-03-02 06:57 | Anesthesia-Regional Post-Op ---
Regional Patient Condition Mental Status: Alert, Oriented x3 Circulation: Same as Pre-Op Headache: Absent Sensation: Full Recovery Motor Block: Absent Post Op Complications Complications None Follow Up Care/Instructions Patient Instructions None needed. Anesthesia/Patient Condition Patient is doing well, no complaints, stable vital signs, no apparent adverse anesthesia problems. No complications reported per nursing. VALERIE CAMPBELL CRNA Mar 02, 2020 06:57
[2020-03-02] MEDS ORDERED: DCS100C PO (06:59)
[2020-03-02] MEDS ORDERED: FERR325T18 PO (06:59)
[2020-03-02] MEDS ORDERED: ACHD5005 PO (06:59)
[2020-03-02] MEDS ORDERED: IBUP-844 PO (06:59)
[2020-03-02] MEDS ORDERED: BENZ78AE5 TP (06:59)
[2020-03-02] MEDS ORDERED: PRENATAL VITAMIN 1 EA TAB PO SCH (07:00)
--- NOTE | 2020-03-02 07:00 | Discharge Inst-Women's Service ---
Discharge Inst-Women's Serv Depart Medication/Instructions New, Converted or Re-Newed RX: RX on Chart Final Diagnosis PPD 1 NVD Problems Reviewed?: Yes Consults/Follow Up Additional Follow Up: Yes Orders/Referrals Dr. Webster in 6 weeks Activity Activity: Activity as Tolerated Driving Instructions: No Driving for 1 Week NO SMOKING: NO SMOKING Nothing Inside Vagina: No Douching, No [place], No Tampons Diet Discharge Diet: No Restrictions Symptoms to Report to : Bleeding Excessive, Pain Increased, Fever Over 101 Degrees F, Vaginal Bleeding Increase, Questions/Concerns For Any Problems or Questions: Contact Your Physician RYAN WEBSTER DO Mar 02, 2020 07:00
[2020-03-02 07:34] VITALS: BP 105/68
[2020-03-02] MEDS: DOCUSATE SODIUM 100 MG (COLACE) CAP PO SCH (07:40)
[2020-03-02] MEDS ORDERED: FERROUS SULF 325 MG (IRON) TAB PO SCH (09:00)
[2020-03-02] MEDS: HYDROcodone/APAP 5 MG/325 MG (LORTAB) TAB PO PRN (10:08)
--- NOTE | 2020-03-02 11:35 | NUR ---
Discharge instructions explained, signed and copy to patient. pt verbalized understanding of instructions and denied questions. prescriptions given and discussed/pt verbalized understanding of medications.
[2020-03-02 12:40] VITALS: BP 105/68
--- NOTE | 2020-03-02 12:40 | NUR ---
Discharged to home. Ambulates self downstairs to private vehicle with belongings in hand. Accompanied by RN downstairs.
== END 2020-03-02 12:40 | disposition home or self-care (01) | DRG 806 ==
LOC: LDRP 21:23
PROVIDERS: ADMIT Obstetrics & Gynecology; ATTEND Obstetrics & Gynecology
PROC: 10E0XZZ Delivery of Products of Conception, External Approach (ICD-10-PCS; principal; 2020-03-01)
PROC: 0KQM0ZZ Repair Perineum Muscle, Open Approach (ICD-10-PCS; 2020-03-01)
PROC: 10907ZC Drainage of Amniotic Fluid, Therapeutic from Products of Conception, Via Natural or Artificial Opening (ICD-10-PCS; 2020-03-01)
DX: O13.4 Gestational [pregnancy-induced] hypertension without significant proteinuria, complicating childbirth (principal); D62 Acute posthemorrhagic anemia; Z37.0 Single live birth; Z3A.39 39 weeks gestation of pregnancy; O71.82 Other specified trauma to perineum and vulva; O70.1 Second degree perineal laceration during delivery; O90.81 Anemia of the puerperium
CPT/HCPCS: 36415; 81000; 85025; 86850; 86900; 86901; 87635

== ENCOUNTER → 2020-12-04 | Outpatient (CLI) | payer BC, OTHER ==
[~2020-12-04] MED LIST changes: +ACHD5005 PO; +BENZ78AE5 TP; +DCS100C PO; +PNV1TABL9 PO
--- NOTE | 2020-12-04 11:53 | Diagnostic Imaging Report ---
PROCEDURE: Pelvic comp/transvaginal sonogram. TECHNIQUE: Complete transabdominal and transvaginal pelvic ultrasound was performed. In addition, limited pelvic Doppler was performed. INDICATION: Right lower quadrant pain. Uterus is retroverted measuring 9.0 x 3.4 x 5.8 cm. Endometrium is 5 mm in thickness. No myometrial mass is identified. Right ovary measures 2.5 x 2.3 x 3.2 cm and left ovary measures 2.8 x 2.4 x 1.8 cm. Both ovaries contain small follicles. There is blood flow to both ovaries. No adnexal mass or free fluid is seen. Evaluation of right lower quadrant was performed. Appendix cannot be visualized. IMPRESSION: 1. Unremarkable transabdominal and transvaginal pelvic ultrasound. 2. Nonvisualized appendix. Dictated by: Dictated on workstation # [id number]
--- NOTE | 2020-12-04 12:04 | Diagnostic Imaging Report ---
INDICATION: Right lower quadrant pain. PROCEDURE: Ultrasound abdomen complete. TECHNIQUE: Multiple Real-time grayscale images were obtained of the abdomen in various projections. FINDINGS: The liver is normal in size at 16.7 cm. No discrete liver mass is identified. The portal vein is patent and shows normal direction of flow. The gallbladder is without stones or sludge. No wall thickening or biliary ductal dilatation is seen. The pancreas is unremarkable. The spleen is normal in size at 10.4 cm. The aorta is nonaneurysmal. The IVC is patent. The kidneys are normal in size with the right kidney measuring 11.6 cm and the left kidney 11.2 cm. There is an echogenic focus in the left kidney measuring approximately 9 mm in size. This is non-shadowing. This could represent a stone versus a fatty lesion such as an angiomyolipoma. There is no ascites. IMPRESSION: Essentially unremarkable abdominal ultrasound without evidence of cholelithiasis or acute cholecystitis. There is a 9 mm echogenic focus in the left kidney, considerations above. The study is otherwise unremarkable. Dictated by: Dictated on workstation # [id number]
== END ==
LOC: RAD 09:00
PROVIDERS: ATTEND Nurse Practitioner Family
DX: R10.31 Right lower quadrant pain (principal)
CPT/HCPCS: 76700; 76830; 76856

== ENCOUNTER → 2021-09-21 | Outpatient (CLI) | payer BC, OTHER ==
[~2021-09-21] MED LIST changes: -DCS100C PO; +DOCU-239 PO
--- NOTE | 2021-09-21 13:19 | Diagnostic Imaging Report ---
PROCEDURE: US Thyroid. TECHNIQUE: Multiple real-time grayscale images were obtained of the thyroid in various projections. INDICATION: Enlarged thyroid and dysphagia. No prior studies are available for comparison. Right lobe of thyroid measures 5.0 x 1.1 x 1.4 cm and the left lobe measures 3.8 x 1.2 x 1.5 cm. Isthmus is 2 mm in thickness. Both lobes show fairly homogeneous echotexture. No dominant thyroid mass is identified. There are 2 small cysts within the right lobe of thyroid approximately 2 and 4 mm in size. No solid mass is detected. IMPRESSION: Essentially unremarkable thyroid ultrasound apart from tiny right lobe cysts. No dominant thyroid mass is detected. Dictated by: Dictated on workstation # [id number]
== END ==
LOC: RAD 12:44
PROVIDERS: ATTEND Nurse Practitioner Family
DX: E04.9 Nontoxic goiter, unspecified (principal)
CPT/HCPCS: 76536